=== PATIENT | female | born 1975 | race Caucasian/White ===

== ENCOUNTER 2023-04-10 15:12 | Inpatient (IN) | payer MEDICAID ==
[~2023-04-10] VITALS: Ht 157.5 cm; Wt 89.8 kg
[2023-04-10] MEDS ORDERED: MORPHINE SULFATE 4 MG/ML CPJ (NOT FOR IM USE) IV STA (15:40)
[2023-04-10] MEDS ORDERED: ONDANSETRON HCL 4MG/2ML INJ IV STA (15:40)
[2023-04-10 16:22] LABS: BASOPHILS % 0.5 % (0.0-2.0); EOSINOPHILS % 1.7 % (0.0-5.0); HEMATOCRIT. 34.1 % (36.0-48.0); HEMOGLOBIN. 11.4 g/dL (12.0-16.0); MEAN CORPUSCULAR HEMOGLOBIN 31.6 pg (28.0-32.0); MEAN CORPUSCULAR HGB CONC 33.3 g/dL (31.0-37.0); MEAN PLATELET VOLUME 8.5 fl (7.4-10.4); NEUTROPHILS % 65.8 % (40.0-76.0); PLATELET 277 x1000/uL (130-400); RED BLOOD CELL COUNT 3.59 mill/uL (4.2-5.4); RED CELL DISTRIBUTION WIDTH 13.6 % (11.6-14.6); WHITE BLOOD COUNT 6.4 x1000/uL (4.5-11.0)
[2023-04-10] MEDS ORDERED: SODIUM CHLORIDE 0.9% 1,000 ML IV ONE (16:30)
[2023-04-10] MEDS ORDERED: KETOROLAC 30MG/ML VIAL IV ONE (16:30)
[2023-04-10 16:33] LABS: ALANINE AMINOTRANSFERASE 9 IU/L (10-49); ASPARTATE AMINOTRANSFERASE 12 IU/L (<34); BILIRUBIN TOTAL 0.5 mg/dL (0.1-1.0); CALCIUM 8.8 mg/dL (8.7-10.4); CARBON DIOXIDE 27 mEq/L (21-32); CHLORIDE 105 mEq/L (98-107); CREATINE KINASE 72 IU/L (34-145); CREATININE 0.6 mg/dL (0.6-1.0); GLUCOSE 87 mg/dL (70-105); HCG SCREEN NEGATIVE; POTASSIUM 3.6 mEq/L (3.5-5.1); PROTEIN TOTAL 7.3 g/dL (6.0-8.3); SODIUM 137 mEq/L (136-145); TROPONIN I HIGH SENSITIVITY 9 ng/L (3.0-34); UREA NITROGEN BLOOD 16 mg/dL (9-23)
[2023-04-10 16:38] LABS: ETHANOL BLOOD < 10 mg/dL (<10)
[2023-04-10 16:39] LABS: PROTHROMBIN TIME 10.6 sec (9.6-11.0)
[2023-04-10 18:32] LABS: CLARITY URINE CLEAR (CLEAR); COLOR URINE YELLOW (YELLOW); GLUCOSE URINE NEGATIVE (NEGATIVE); KETONES URINE NEGATIVE (NEGATIVE); LEUKOCYTE ESTERASE URINE TRACE (NEGATIVE); NITRITE URINE NEGATIVE (NEGATIVE); OCCULT BLOOD URINE NEGATIVE (NEGATIVE); PH URINE 5.5 (4.5-8.0); PROTEIN URINE NEGATIVE (NEGATIVE); SPECIFIC GRAVITY URINE 1.089 (1.005-1.030)
[2023-04-10 18:40] LABS: *AMPHETAMINES SCREEN URINE NEGATIVE (NEGATIVE); *BARBITURATES SCREEN URINE NEGATIVE (NEGATIVE); *BENZODIAZEPINES SCREEN URINE NEGATIVE (NEGATIVE); *COCAINE SCREEN URINE NEGATIVE (NEGATIVE); CANNABINOID URINE SCREEN NEGATIVE (NEGATIVE); ECSTASY MDMA SCREEN URINE NEGATIVE (NEGATIVE); METHADONE URINE SCREEN Neg (NEGATIVE); OPIATES URINE SCREEN PRESUMPTIVE POSITIVE (NEGATIVE); PHENCYCLIDINE URINE SCREEN NEGATIVE (NEGATIVE)
[2023-04-10 18:50] LABS: BACTERIA URINE 1+; RBC URINE 0-2 /hpf (0-2); SQUAMOUS EPITHELIAL CELL URINE 2+ /lpf (RARE/1+)
[2023-04-10 19:29] LABS: TROPONIN I HIGH SENSITIVITY 9 ng/L (3.0-34)
[2023-04-10 22:10] VITALS: BP 129/66; PULSE 55; RESP 20; TEMP 97.7
[2023-04-10] MEDS ORDERED: KETOROLAC 15MG/ML VIAL IV PRN (22:15)
[2023-04-10] MEDS ORDERED: HYDROCODONE/ACETAMINOPHEN 5/325MG TABLET PO PRN ×2 (22:15→23:45)
[2023-04-10] MEDS ORDERED: ONDANSETRON HCL 4MG/2ML INJ IV PRN (22:15)
[2023-04-10] MEDS ORDERED: IOHEXOL-350 100 ML BOTTLE ONE (23:25)
[2023-04-10] MEDS ORDERED: MORPHINE SULFATE 2 MG/ML CPJ (NOT FOR IM USE) IV PRN (23:45)
[2023-04-11] VITALS: BP 121/56; PULSE 57; RESP 20; TEMP 98.2
[2023-04-11] MEDS ORDERED: SODIUM CHLORIDE 0.9% 1,000 ML IV SCH
[2023-04-11 04:00] VITALS: PULSE 78; RESP 20; TEMP 98.5
[2023-04-11 07:40] LABS: BASOPHILS % 0.5 % (0.0-2.0); HEMATOCRIT. 31.9 % (36.0-48.0); HEMOGLOBIN. 10.9 g/dL (12.0-16.0); LYMPHOCYTES % 26.1 % (20.0-50.0); MEAN CORPUSCULAR HEMOGLOBIN 31.7 pg (28.0-32.0); MEAN CORPUSCULAR HGB CONC 34.1 g/dL (31.0-37.0); MEAN CORPUSCULAR VOLUME 93.1 fL (81.0-99.0); MEAN PLATELET VOLUME 8.4 fl (7.4-10.4); MONOCYTES % 9.7 % (2.0-8.0); NEUTROPHILS % 60.7 % (40.0-76.0); PLATELET 231 x1000/uL (130-400); RED BLOOD CELL COUNT 3.43 mill/uL (4.2-5.4); RED CELL DISTRIBUTION WIDTH 13.6 % (11.6-14.6); WHITE BLOOD COUNT 5.3 x1000/uL (4.5-11.0)
[2023-04-11 07:55] LABS: CALCIUM 8.7 mg/dL (8.7-10.4); CARBON DIOXIDE 24 mEq/L (21-32); CHLORIDE 109 mEq/L (98-107); CREATININE 0.5 mg/dL (0.6-1.0); GLUCOSE 95 mg/dL (70-105); POTASSIUM 3.8 mEq/L (3.5-5.1); SODIUM 140 mEq/L (136-145); UREA NITROGEN BLOOD 13 mg/dL (9-23)
[2023-04-11 08:00] VITALS: BP 106/56; PULSE 66; RESP 20; TEMP 98.1
[2023-04-11] MEDS ORDERED: NALOXONE HCL 0.4MG/ML VIAL IV PRN (08:15)
[2023-04-11] MEDS: ENOXAPARIN 40MG/0.4ML SYR SUBCUT SCH (09:08)
[2023-04-11] MEDS: FOLIC ACID 1MG TABLET PO SCH (09:08)
[2023-04-11] MEDS: SULFAMETHOXAZOLE/TRIMETHOPRIM 400/80MG TAB PO SCH ×2 (09:08→21:18)
[2023-04-11 12:00] VITALS: BP 110/58; PULSE 68; RESP 18; TEMP 97.9
[2023-04-11 16:00] VITALS: BP 118/59; PULSE 79; RESP 18; TEMP 97.6
[2023-04-11 20:00] VITALS: BP 108/43; PULSE 79; RESP 19; TEMP 97.9
[2023-04-12] VITALS: BP 112/56; PULSE 86; RESP 20; TEMP 97.7
[2023-04-12 04:00] VITALS: BP 109/52; PULSE 72; RESP 19; TEMP 97.7
[2023-04-12 08:00] VITALS: BP 108/40; PULSE 73; RESP 16; TEMP 97.9
[2023-04-12] MEDS: SULFAMETHOXAZOLE/TRIMETHOPRIM 400/80MG TAB PO SCH (08:17)
[2023-04-12] MEDS: FOLIC ACID 1MG TABLET PO SCH (08:17)
[2023-04-12] MEDS: ENOXAPARIN 40MG/0.4ML SYR SUBCUT SCH (08:18)
[2023-04-12 11:41] VITALS: BP 108/40; PULSE 73; TEMP 97.9; O2SAT 98
[2023-04-12 12:00] VITALS: BP 128/36; PULSE 70; RESP 18; TEMP 97
[2023-04-12] MEDS ORDERED: SULFAMETHOXAZOLE/TRIMETHOPRIM 800/160MG TABLET PO SCH (17:00)
== END 2023-04-12 12:45 | disposition home or self-care (01) | DRG 54 ==
LOC: ER 15:12 → 7WST 21:17 → EDBEDREQ 21:21 → EDBEDREQTM 21:21 → EDBEDREQSVC 21:21
PROVIDERS: ADMIT Internal Medicine Nephrology; ATTEND Internal Medicine Nephrology
PROC: 4A00X4Z Measurement of Central Nervous Electrical Activity, External Approach (ICD-10-PCS; principal; 2023-04-12)
DX: G43.909 Migraine, unspecified, not intractable, without status migrainosus (principal); F41.9 Anxiety disorder, unspecified; Z79.899 Other long term (current) drug therapy
CPT/HCPCS: 36415; 70496; 70498; 70551; 71045; 80048; 80053; 80305; 80320; 81003; 82550; 82962; 84484; 84703; 85025; 86850; 86900; 93005; 99291; J1650; J1885; J2270; J2405; J7030; Q9967; G0480

== ENCOUNTER 2023-11-01 21:39 | Emergency (ER) | payer SELFPAY ==
[~2023-11-01] VITALS: Ht 157.5 cm; Wt 89.0 kg
[2023-11-01 22:07] VITALS: O2SAT 100
[2023-11-01] MEDS: KETOROLAC 15MG/ML VIAL IM ONE (23:13)
[2023-11-02] MEDS ORDERED: LIDO700A15 TP (00:01)
[2023-11-02] MEDS ORDERED: NAPR-1176 MT (00:01)
[2023-11-02 00:05] VITALS: BP 122/61; PULSE 63; RESP 18; O2SAT 100
== END 2023-11-02 00:05 | disposition home or self-care (01) ==
LOC: ER 21:39
DX: G89.29 Other chronic pain (principal); M79.671 Pain in right foot
CPT/HCPCS: 73630; 96372; 99283; J1885; Z7610

== ENCOUNTER 2023-12-09 14:07 | Emergency (ER) | payer SELFPAY ==
[~2023-12-09] VITALS: Ht 157.5 cm; Wt 88.0 kg
[~2023-12-09 14:07] MED LIST: LIDO700A15 TP; NAPR-1176 MT
[2023-12-09 14:16] VITALS: O2SAT 97
[2023-12-09 15:57] LABS: BASOPHILS % 0.5 % (0.0-2.0); EOSINOPHILS % 1.7 % (0.0-5.0); HEMATOCRIT. 38.2 % (36.0-48.0); HEMOGLOBIN. 12.4 g/dL (12.0-16.0); LYMPHOCYTES % 30.7 % (20.0-50.0); MEAN CORPUSCULAR HEMOGLOBIN 30.6 pg (28.0-32.0); MEAN CORPUSCULAR HGB CONC 32.4 g/dL (31.0-37.0); MEAN CORPUSCULAR VOLUME 94.2 fL (81.0-99.0); MEAN PLATELET VOLUME 8.6 fl (7.4-10.4); MONOCYTES % 10.8 % (2.0-8.0); NEUTROPHILS % 56.3 % (40.0-76.0); PLATELET 291 x1000/uL (130-400); RED BLOOD CELL COUNT 4.05 mill/uL (4.2-5.4); RED CELL DISTRIBUTION WIDTH 13.6 % (11.6-14.6); WHITE BLOOD COUNT 5.1 x1000/uL (4.5-11.0)
[2023-12-09 16:03] LABS: CHLORIDE 105 mEq/L (98-107); SODIUM 139 mEq/L (136-145)
[2023-12-09 16:05] LABS: CARBON DIOXIDE 29 mEq/L (21-32)
[2023-12-09 16:06] LABS: CALCIUM 10.3 mg/dL (8.7-10.4)
[2023-12-09 16:10] LABS: CREATININE 0.8 mg/dL (0.6-1.0); GLUCOSE 90 mg/dL (70-105); TROPONIN I HIGH SENSITIVITY 5 ng/L (3.0-34)
[2023-12-09 16:11] LABS: UREA NITROGEN BLOOD 11 mg/dL (9-23)
[2023-12-09 16:12] LABS: ALANINE AMINOTRANSFERASE 19 IU/L (10-49); ALBUMIN 4.6 g/dL (3.2-4.8); ASPARTATE AMINOTRANSFERASE 23 IU/L (<34)
[2023-12-09 16:13] LABS: BILIRUBIN DIRECT 0.1 mg/dL (<=3.0); BILIRUBIN TOTAL 0.4 mg/dL (0.1-1.0); PROTEIN TOTAL 8.1 g/dL (6.0-8.3)
[2023-12-09 16:35] LABS: HCG SCREEN NEGATIVE
[2023-12-09 20:17] LABS: TROPONIN I HIGH SENSITIVITY 6 ng/L (3.0-34)
[2023-12-09] MEDS: ACETAMINOPHEN 325MG TABLET PO NR (21:23)
[2023-12-09 22:23] VITALS: BP 130/74; PULSE 55; RESP 14; TEMP 36.39180; O2SAT 100
== END 2023-12-09 22:24 | disposition home or self-care (01) ==
LOC: ER 14:22
DX: B34.9 Viral infection, unspecified (principal); R07.89 Other chest pain; R51.9 Headache, unspecified; Z79.1 Long term (current) use of non-steroidal anti-inflammatories (NSAID)
CPT/HCPCS: 36415; 71045; 80048; 80076; 84484; 84703; 85025; 93005; 99285

== ENCOUNTER 2024-02-14 15:02 | Emergency (ER) | payer SELFPAY ==
[~2024-02-14] VITALS: Ht 165.1 cm; Wt 91.0 kg
[2024-02-14 15:12] VITALS: O2SAT 98
[2024-02-14] MEDS: TETRACAINE 0.5% OPHTH DROPS 4ML EACHEYE ONE (18:09)
[2024-02-14] MEDS: FLUORESCEIN SODIUM 1MG/STRIP EACHEYE ONE (18:09)
[2024-02-14] MEDS ORDERED: ERYT1OIN6 RIGHT EAR (19:01)
[2024-02-14 19:22] VITALS: BP 131/84; PULSE 82; RESP 18; TEMP 36.89184; O2SAT 98
== END 2024-02-14 19:23 | disposition home or self-care (01) ==
LOC: ER 15:02
DX: S05.01XA Injury of conjunctiva and corneal abrasion without foreign body, right eye, initial encounter (principal); Z79.1 Long term (current) use of non-steroidal anti-inflammatories (NSAID); Z90.49 Acquired absence of other specified parts of digestive tract; X58.XXXA Exposure to other specified factors, initial encounter; Y93.89 Activity, other specified; Y92.89 Other specified places as the place of occurrence of the external cause; Y99.8 Other external cause status
CPT/HCPCS: 99283